=== PATIENT | male | born 1985 | race African-American/Black ===

== ENCOUNTER 2020-05-13 09:21 | Emergency (ER) | payer OTHER ==
[~2020-05-13] VITALS: Ht 188 cm; Wt 102.0 kg
[2020-05-13] MEDS ORDERED: ASPIRIN CHEWABLE 81 MG TABLET. PO ONE (09:30)
--- NOTE | 2020-05-13 09:51 | RAD ---
EXAMINATION: XR CHEST 1V CLINICAL HISTORY: Chest pain EXAM DATE/TIME: 05/13/2020 9:26 AM COMPARISON: None FINDINGS: Lines, Tubes, and Devices: None. Cardiomediastinal Silhouette: Within normal limits. Lungs and Pleura: No evidence of focal airspace consolidation or pleural effusion. Pulmonary vasculat ure unremarkable. Bones and Soft Tissues: No acute osseous abnormality. IMPRESSION: No evidence of acute cardiopulmonary abnormality. Electronically signed by: Lele Alcantara DO (05/13/2020 9:49 AM) [id number]
[2020-05-13 09:53] LABS: BASO # 0.1 x10^3/uL (0.0-0.2); BASO % 1 % (0-3); EOS # 0.1 x10^3/uL (0.0-0.7); EOS % 1 % (0-3); HEMATOCRIT 37.9 % (39.0-53.0); HEMOGLOBIN 12.4 g/dL (13.0-17.5); LYMPH # 1.5 x10^3/uL (1.0-4.8); LYMPH % 38 % (24-48); MEAN CORPUSCULAR HEMOGLOBIN 30 pg (25-35); MEAN CORPUSCULAR HGB CONC 33 g/dL (31-37); MEAN CORPUSCULAR VOLUME 91 fL (79-100); MONO # 0.5 x10^3/uL (0.0-1.1); MONO % 12 % (0-9); NEUT # 1.9 x10^3/uL (1.8-7.7); NEUT % 48 % (31-73); PLATELET COUNT 182 x10^3/uL (140-400); RED BLOOD COUNT 4.17 x10^6/uL (4.30-5.70); RED CELL DISTRIBUTION WIDTH 14.4 % (11.5-14.5)
[2020-05-13] MEDS ORDERED: IOHEXOL 300 MG/ML 100ML VIAL. IV ONE (10:00)
[2020-05-13 10:04] LABS: CALCIUM 8.1 mg/dL (8.5-10.1); CREATININE 1.3 mg/dL (0.7-1.3); GFR 62.1; POTASSIUM 4.2 mmol/L (3.5-5.1)
[2020-05-13 10:11] LABS: ALBUMIN 3.7 g/dL (3.4-5.0); ALBUMIN/GLOBULIN RATIO 0.9 (1.0-1.7); MAGNESIUM 2.3 mg/dL (1.8-2.4); TOTAL BILIRUBIN 0.6 mg/dL (0.2-1.0); TOTAL PROTEIN 7.7 g/dL (6.4-8.2)
--- NOTE | 2020-05-13 10:12 | EKG ---
[facility] [address] [place] [address] Test Date: 2020-05-13 Test Time: 09:23:40 Pat Name: JANES GOMEZ Department: Room: Gender: M [employer]: : 1985 Requested By: JOSE GUADALUPE HOBBS Order Number: [id number] Reading MD: Measurements Intervals [place] Rate: 66 P: -19 KS: 190 QRS: 35 QRSD: 82 T: 31 QT: 358 QTc: 377 Interpretive Statements SINUS RHYTHM QRS(T) CONTOUR ABNORMALITY CONSISTENT WITH ANTEROSEPTAL INFARCT PROBABLY OLD ABNORMAL ECG RI6.01 No previous ECG available for comparison
[2020-05-13] MEDS ORDERED: CONTRAST GIVEN. MC PRN (10:15)
--- NOTE | 2020-05-13 10:45 | RAD ---
CT ABDOMEN+PELVIS W History: Reason: abdominal pain / Spl. Instructions: IV OMNI 300 75 MLS / History: Comparison: None. Technique: CT of the abdomen and pelvis with intravenous contrast. Findings: Lung bases are clear. No pleural or pericardial effusion. The liver, gallbladder, bile ducts, pancreas, spleen, adrenal glands are unremarkable. Mild right mary anne al ptosis. The ureters and bladder are unremarkable. The stomach and small bowel are unremarkable. The ileocecal valve is in the right upper quadrant and extends to the rectum. Suspect history of partial colectomy with removal of the transverse, descendin g and sigmoid colon. Unremarkable vasculature. No abdominal pelvic adenopathy. No free air or free fluid. Postsurgical changes at the right inguinal canal with soft tissue stranding and multiple surgical cli ps. Area of relative hypodensity measuring 1.1 cm diameter (axial image 83) does not demonstrate sign ificant peripheral enhancement and measures greater density than simple fluid. Right hip os acetabuli . Impression: 1. Postsurgical changes from right inguinal hernia repair with adjacent inflammatory fat stranding. No definite abscess formation identified. 2. Findings which most likely represent remote history of partial colectomy. Exposure: One or more of the following individualized dose reduction techniques were utilized for thi s examination: 1. Automated exposure control 2. Adjustment of the mA and/or kV according to patient size 3. Use of iterative reconstruction technique. Electronically signed by: Guillermo De Leon MD (05/13/2020 10:43 AM) [facility]
--- NOTE | 2020-05-13 11:05 | PHYS DOC ---
Past Medical History Past Medical History: Hypertension Additional Past Medical Histor: "GI ISSUES, MULTIPLE HERNIAS" Past Surgical History: Other Additional Past Surgical Histo: MULTIPLE HERNIA REPAIRS Smoking Status: Never Smoker Alcohol Use: Heavy Additional Information: WINE DAILY Adult General Chief Complaint Chief Complaint: CHEST PAIN [facility] HPI Patient is a 35 year old male with known past medical history of PVCs as well as multiple abdominal surgeries for hernia repairs now presents emergency department complaint of new onset of abdominal chest pain. Patient states that last 2 days he developing worsening midepigastric abdominal pain which is radiating to the left anterior chest. Patient states that he has been associate with mild nausea but denies any radiation. Noted aggravating or alleviating factors. Patient states that over the last 3 months he has had having worsening sensation of palpitations and primary care when he is exerting himself. Denies any recent cough, fever, chills, dizziness or lightheadedness Review of Systems Review of Systems Constitutional: Denies fever or chills [] Eyes: Denies change in visual acuity, redness, or eye pain [] HENT: Denies nasal congestion or sore throat [] Respiratory: Denies cough or shortness of breath [] Cardiovascular: No additional information not addressed in HPI [] GI: Denies abdominal pain, nausea, vomiting, bloody stools or diarrhea [] : Denies dysuria or hematuria [] Musculoskeletal: Denies back pain or joint pain [] Integument: Denies rash or skin lesions [] Neurologic: Denies headache, focal weakness or sensory changes [] Endocrine: Denies polyuria or polydipsia [] All other systems were reviewed and found to be within normal limits, except as documented in this note. Current Medications Current Medications Current Medications Medications (Trade) Dose Ordered Sig/Norma Start Time Stop Time Status Last Admin Dose Admin Aspirin (Aspirin Chewable) 324 mg 1X ONCE 05/13/20 09:30 05/13/20 09:31 DC Info (CONTRAST GIVEN -- Rx MONITORING) 1 each PRN DAILY PRN 05/13/20 10:15 05/15/20 10:14 Iohexol (Omnipaque 300 Mg/ml) 75 ml 1X ONCE 05/13/20 10:00 05/13/20 10:01 DC 05/13/20 10:28 75 ML Allergies Allergies Allergies Coded Allergies Type Severity Reaction Last Updated Verified No Known Drug Allergies 05/13/20 No Physical Exam Physical Exam Constitutional: Well developed, well nourished, no acute distress, non-toxic appearance. [] HENT: Normocephalic, atraumatic, bilateral external ears normal, oropharynx moist, no oral exudates, nose normal. [] Eyes: PERRLA, EOMI, conjunctiva normal, no discharge. [] Neck: Normal range of motion, no tenderness, supple, no stridor. [] Cardiovascular:Heart rate regular rhythm, no murmur [] Lungs & Thorax: Bilateral breath sounds clear to auscultation [] Abdomen: Bowel sounds normal, soft, no tenderness, no masses, no pulsatile masses. [] Skin: Warm, dry, no erythema, no rash. [] Back: No tenderness, no CVA tenderness. [] Extremities: No tenderness, no cyanosis, no clubbing, ROM intact, no edema. [] Neurologic: Alert and oriented X 3, normal motor function, normal sensory function, no focal deficits noted. [] Psychologic: Affect normal, judgement normal, mood normal. [] Current Patient Data Vital Signs Vital Signs Date Time Temp Pulse Resp B/P (MAP) Pulse Ox O2 Delivery O2 Flow Rate FiO2 05/13/20 09:21 98.3 56 18 171/72 (105) 99 Room Air 98.3 Lab Values Laboratory Tests Test 05/13/20 09:44 White Blood Count 4.0 x10^3/uL (4.0-11.0) Red Blood Count 4.17 x10^6/uL (4.30-5.70) L Hemoglobin 12.4 g/dL (13.0-17.5) L Hematocrit 37.9 % (39.0-53.0) L Mean Corpuscular Volume 91 fL (79-100) Mean Corpuscular Hemoglobin 30 pg (25-35) Mean Corpuscular Hemoglobin Concent 33 g/dL (31-37) Red Cell Distribution Width 14.4 % (11.5-14.5) Platelet Count 182 x10^3/uL (140-400) Neutrophils (%) (Auto) 48 % (31-73) Lymphocytes (%) (Auto) 38 % (24-48) Monocytes (%) (Auto) 12 % (0-9) H Eosinophils (%) (Auto) 1 % (0-3) Basophils (%) (Auto) 1 % (0-3) Neutrophils # (Auto) 1.9 x10^3/uL (1.8-7.7) Lymphocytes # (Auto) 1.5 x10^3/uL (1.0-4.8) Monocytes # (Auto) 0.5 x10^3/uL (0.0-1.1) Eosinophils # (Auto) 0.1 x10^3/uL (0.0-0.7) Basophils # (Auto) 0.1 x10^3/uL (0.0-0.2) Sodium Level 139 mmol/L (136-145) Potassium Level 4.2 mmol/L (3.5-5.1) Chloride Level 104 mmol/L (98-107) Carbon Dioxide Level 23 mmol/L (21-32) Anion Gap 12 (6-14) Blood Urea Nitrogen 14 mg/dL (8-26) Creatinine 1.3 mg/dL (0.7-1.3) Estimated GFR (Cockcroft-Gault) 62.1 BUN/Creatinine Ratio 11 (6-20) Glucose Level 102 mg/dL (70-99) H Calcium Level 8.1 mg/dL (8.5-10.1) L Magnesium Level 2.3 mg/dL (1.8-2.4) Total Bilirubin 0.6 mg/dL (0.2-1.0) Aspartate Amino Transferase (AST) 82 U/L (15-37) H Alanine Aminotransferase (ALT) 59 U/L (16-63) Alkaline Phosphatase 120 U/L (46-116) H Troponin I Quantitative < 0.017 ng/mL (0.000-0.055) Total Protein 7.7 g/dL (6.4-8.2) Albumin 3.7 g/dL (3.4-5.0) Albumin/Globulin Ratio 0.9 (1.0-1.7) L Lipase 251 U/L (73-393) Laboratory Tests 05/13/20 09:44 Laboratory Tests 05/13/20 09:44 EKG EKG [] Radiology/Procedures Radiology/Procedures CT ABDOMEN+PELVIS W History: Reason: abdominal pain / Spl. Instructions: IV OMNI 300 75 MLS / History: Comparison: None. Technique: CT of the abdomen and pelvis with intravenous contrast. Findings: Lung bases are clear. No pleural or pericardial effusion. The liver, gallbladder, bile ducts, pancreas, spleen, adrenal glands are unremarkable. Mild right renal ptosis. The ureters and bladder are unremarkable. The stomach and small bowel are unremarkable. The ileocecal valve is in the right upper quadrant and extends to the rectum. Suspect history of partial colectomy with removal of the transverse, descending and sigmoid colon. Unremarkable vasculature. No abdominal pelvic adenopathy. No free air or free fluid. Postsurgical changes at the right inguinal canal with soft tissue stranding and multiple surgical clips. Area of relative hypodensity measuring 1.1 cm diameter (axial image 83) does not demonstrate significant peripheral enhancement and measures greater density than simple fluid. Right hip os acetabuli. Impression: 1. Postsurgical changes from right inguinal hernia repair with adjacent inflammatory fat stranding. No definite abscess formation identified. 2. Findings which most likely represent remote history of partial colectomy. Exposure: One or more of the following individualized dose reduction techniques were utilized for this examination: 1. Automated exposure control 2. Adjustment of the mA and/or kV according to patient size 3. Use of iterative reconstruction technique. Electronically signed by: Guillermo De Leon MD (05/13/2020 10:43 AM) [facility] Course & Med Decision Making Course & Med Decision Making Pertinent Labs and Imaging studies reviewed. (See chart for details) 35m presented with nonspecific abdominal pain and chest pain which is raise concern for acute coronary syndrome given the patient's cardiac history. Also there is a significant concern for significant intra-abdominal pathology considering patient does have a history of multiple abdominal surgeries and and strangulated hernias. At this time will obtain ACS work-up, chest x-ray and obtain a CT of the abdomen to make sure there is no significant intra-abdominal pathology. CT scan of the abdomen does not demonstrate any evidence of new abdominal hernia. Initial ACS work-up is negative. Patient does note that he had a stress test 2 years ago which demonstrated some arrhythmias but no structural changes. I think based on this the chance of patient having life-threatening cardiac abnormality at this time is extremely low. I admitted the patient and he is planning to follow-up with his oracle apex developer this week. I spoken with the patient and her caregivers. I explained the patient's condition, diagnoses and treatment plan based on the information available to me at this time. I have answered the patient and her caregiver's questions and addressed any concerns. The patient and her caregivers have a good understanding of patient's diagnosis, condition and treatment plan as can be expected at this point. Vital signs have been stable. Patient's condition is stable and appropriate for discharge from the emergency department. Patient will pursue further outpatient evaluation with primary care physician or other designated or consulting physician as outlined in the discharge instructions. The patient and/or caregivers are agreeable to this plan of care and follow-up instructions have been explained in detail. The patient and/or caregivers have received these instructions in written form and have expressed an understanding of the discharge instructions. The patient and/or caregivers are aware that any significant change of condition or worsening of symptoms should prompt immediate return to this or the closest emergency department or call to 911. Dwayne Disclaimer Dragon Disclaimer This electronic medical record was generated, in whole or in part, using a voice recognition dictation system. Departure Departure Impression: Primary Impression: Nonspecific chest pain Disposition: 01 DC HOME SELF CARE/HOMELESS Condition: GOOD Referrals: NON,STAFF (PCP) Patient Instructions: Chest Pain (Nonspecific) Additional Instructions: EMERGENCY DEPARTMENT GENERAL DISCHARGE INSTRUCTIONS Thank you for coming to [facility] Emergency Department (ED) today and trusting us with you care. We trust that you had a positive experience in our Emergency Department. If you wish to speak to the department management, you may call the Director at [phone]. YOUR FOLLOW UP INSTRUCTIONS ARE FOLLOWS: 1. Do you have a private Doctor? If you do not have a private doctor, please ask for a resource list of physicians or clinics that may be able to assist you with follow up care. 2. The Emergency Physicain has interpreted your x-rays. The X-Ray specialist will also review them. If there is a change in the findings, you will be notified in 48 hours when at all possible. 3. A lab test or culture has been done, your results will be reviewed and you will be notified if you need a change in treatment. ADDITIONAL INSTRUCTIONS AND INFORMATION: 1. Your care today has been supervised by a physician who is specially trained in emergency care. Many problems require more than one evaluation for a complete diagnosis and treatment. We recommend that you schedule your follow up appointment as recommended to ensure complete treatment of you illness or injury. If you are unable to obtain follow up care and continue to have a problem, or if your condition worsens, we recommend that you return to the ED. 2. We are not able to safely determine your condition over the phone nor are we able to give sound medical advice over the phone. For these safety reasons, if you call for medical advice we will ask you to come to the ED for further evaluation. 3. If you have any questions regarding these discharge instructions please call the ED at [phone]. SAFETY INFORMATION: In the interest of safety, wellness, and injury prevention; we encourage you to wear your sealbelt, if you smoke; quite smoking, and we encourage family to use a protective helmet for bicycling and other sporting events that present an increased risk for head injury. IF YOUR SYMPTOMS WORSEN OR NEW SYMPTOMS DEVELOP, OR YOU HAVE CONCERNS ABOUT YOUR CONDITION; OR IF YOUR CONDITION WORSENS WHILE YOU ARE WAITING FOR YOUR FOLLOW UP APPOINTMENT; EITHER CONTACT YOUR PRIMARY CARE DOCTOR, THE PHYSICIAN WHOSE NAME AND NUMBER YOU WERE GIVEN, OR RETURN TO THE ED IMMEDIATELY. JOSE GUADALUPE HOBBS MD May 13, 2020 11:05
[2020-05-13 11:26] VITALS: BP 161/73
== END 2020-05-13 12:01 | disposition home or self-care (01) ==
LOC: ER 09:21
DX: R07.89 Other chest pain (principal); R10.13 Epigastric pain; R11.0 Nausea; I10 Essential (primary) hypertension; F10.10 Alcohol abuse, uncomplicated; Z98.890 Other specified postprocedural states
CPT/HCPCS: 36415; 71045; 74177; 80053; 83690; 83735; 84484; 85025; 93005; 99285; Q9967